=== PATIENT | male | born 1970 | race African-American/Black ===

== ENCOUNTER 2016-08-29 22:53 | Emergency (ER) | payer OTHER ==
[2016-08-29 23:08] VITALS: TEMP 98.1; BMI 25.8
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
[2016-08-30] MEDS ORDERED: ASPIRIN 81 MG CHEWABLE TABLETS PO ONE (00:06)
[2016-08-30 00:30] LABS: BASOPHIL 1.2 % (0-2.0); EOSINOPHIL 1.2 % (0-4.5); MCH 28.9 pg (25.7-33.7); MCHC 34.2 g/dl (32.0-35.9); MEAN CELL VOLUME 84.4 fl (80-96); MEAN PLT VOLUME 10.5 fl (7.5-11.1); NEUTROPHILS 48.9 % (42.8-82.8); PLATELET COUNT 122 K/MM3 (134-434); RDW 13.5 % (11.9-15.9); WHITE BLOOD COUNT 4.1 K/mm3 (4.0-10.0)
[2016-08-30 00:53] LABS: INR 1.05 (0.82-1.09); PROTHROMBIN TIME (PATIENT) 11.6 SEC (9.98-11.88)
[2016-08-30 00:55] LABS: ALBUMIN 3.7 g/dl (3.4-5.0); ANION GAP 10 (8-16); BILIRUBIN,TOTAL 0.6 mg/dL (0.2-1.0); CALCIUM 8.5 mg/dL (8.5-10.1); CO2 26 mmol/L (21-32); CREATININE 1.4 mg/dL (0.7-1.3); GLUCOSE,RANDOM 85 mg/dL (74-106); MAGNESIUM 2.1 mg/dL (1.8-2.4); SGOT/AST 14 U/L (15-37); SGPT/ALT 28 U/L (12-78); TOT PROT 6.9 g/dl (6.4-8.2)
[2016-08-30 00:57] LABS: ALK PHOS 58 U/L (45-117); TROPONIN I < 0.02 ng/ml (0.00-0.05)
[2016-08-30 05:07] LABS: TROPONIN I < 0.02 ng/ml (0.00-0.05)
--- NOTE | 2016-08-30 05:23 | PDOC ---
*Physical Exam - Vital Signs Last Vital Signs Temp Pulse Resp BP Pulse Ox 98.1 F 72 16 140/68 97 08/29/16 22:59 08/29/16 22:59 08/29/16 22:59 08/29/16 22:59 08/29/16 22:59 - Physical Exam Comments: 08/30/16 05:18 Pt received on sign out comfortable; repeat troponin is negative. He is encouraged to follow up with the PMD within the next 48 hours. ED Treatment Course - LABORATORY CBC & Chemistry Diagram: 08/30/16 00:20 08/30/16 00:20 - ADDITIONAL ORDERS Additional order review: Laboratory Results 08/30/16 08/30/16 08/30/16 04:05 00:20 00:20 INR D-Dimer Sodium Potassium Chloride Carbon Dioxide Anion Gap BUN Creatinine Creat Clearance w eGFR Random Glucose Calcium Magnesium Total Bilirubin AST ALT Alkaline Phosphatase Creatine Kinase 190 Creatine Kinase Index CK-MB (CK-2) CK-MB (CK-2) Rel Index Cancelled Troponin I < 0.02 B-Natriuretic Peptide 21.62 Total Protein Albumin 08/30/16 08/30/16 08/30/16 00:20 00:20 00:20 INR 1.05 D-Dimer < 200 Sodium 144 Potassium 4.0 Chloride 108 H Carbon Dioxide 26 Anion Gap 10 BUN 18 Creatinine 1.4 H Creat Clearance w eGFR 54.32 Random Glucose 85 Calcium 8.5 Magnesium 2.1 Total Bilirubin 0.6 D AST 14 L D ALT 28 D Alkaline Phosphatase 58 Creatine Kinase 203 Creatine Kinase Index 0.6 CK-MB (CK-2) 1.188 CK-MB (CK-2) Rel Index Troponin I < 0.02 B-Natriuretic Peptide Total Protein 6.9 Albumin 3.7 08/30/16 00:20 RBC 4.63 MCV 84.4 MCHC 34.2 RDW 13.5 MPV 10.5 Neutrophils % 48.9 Lymphocytes % 40.6 H Monocytes % 8.1 Eosinophils % 1.2 Basophils % 1.2 - Medications Given in the ED: ED Medications Discontinued Medications Generic Name Dose Route Start Last Admin Trade Name Freq PRN Reason Stop Dose Admin Aspirin 162 mg 08/30/16 00:06 08/30/16 01:00 Asa - PO 08/30/16 00:07 162 mg ONCE ONE Administration *DC/Admit/Observation/Transfer Diagnosis at time of Disposition: Chest pain Qualifiers: Chest pain type: unspecified Qualified Code(s): R07.9 - Chest pain, unspecified - Discharge Dispostion Disposition: HOME Condition at time of disposition: Good Admit: No Decision to Admit order Date/Time: 08/30/16 05:19 - Patient Instructions Additional Instructions: Please follow up with the PMD within the next 48 hours and if there is any change otherwise in symptoms, please return immediately to the ED.
[2016-08-30 07:01] VITALS: BP 134/80; PULSE 55
--- NOTE | 2016-08-30 13:29 | EKG ---
Test Reason : Blood Pressure : / mmHG Vent. Rate : 055 BPM Atrial Rate : 055 BPM P-R Int : 154 ms QRS Dur : 088 ms QT Int : 406 ms P-R-T Axes : 074 021 036 degrees QTc Int : 388 ms SINUS BRADYCARDIA OTHERWISE NORMAL ECG NO PREVIOUS ECGS AVAILABLE Confirmed by TOM CARMICHAEL MD ([id number]) on 08/30/2016 1:29:19 PM Referred By: Confirmed By:TOM CARMICHAEL MD
== END 2016-08-30 07:02 | disposition home or self-care (01) ==
LOC: JER 22:53
DX: R07.9 Chest pain, unspecified (principal)
CPT/HCPCS: 36415; 71010-TC; 80053; 82550; 82553; 83735; 83880; 84484; 85025; 85379; 85610; 93005; 93010; 99283-25

== ENCOUNTER 2017-09-05 08:41 | Inpatient (IN) | payer OTHER ==
[2017-09-05 10:29] VITALS: BMI 27.0
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
[2017-09-05] MEDS ORDERED: IBUPROFEN 400 MG TABLET (FP) PO PRN (11:41)
[2017-09-05] MEDS ORDERED: MENTHOL/PHENOL 1 EACH UD MM PRN (11:41)
[2017-09-05] MEDS ORDERED: ACETAMINOPHEN 325 MG TABLET (FP) PO PRN (11:41)
[2017-09-05] MEDS ORDERED: P-EPHED 60MG/TRIPROLIDI 2.5MG TABLET PO PRN (11:41)
[2017-09-05] MEDS ORDERED: LOPERAMIDE HCL 2 MG CAPSULE PO PRN (11:41)
[2017-09-05] MEDS ORDERED: MAGNESIUM CITRATE 300 ML BOTTLE PO PRN (11:41)
[2017-09-05] MEDS ORDERED: MAG HYDROX/AL HYDROX/SIMETH 30 ML UNIT-DOSE CUP PO PRN (11:41)
[2017-09-05] MEDS ORDERED: MAGNESIUM HYDROX 2400MG/30ML ORAL SUSPENSION 30 ML CUP PO PRN (11:41)
[2017-09-05] MEDS ORDERED: guaiFENesin/D-METHORPHAN HB 10 ML UNIT-DOSE CUPS PO PRN (11:41)
[2017-09-05] MEDS ORDERED: hydrOXYzine PAMOATE 50 MG CAPSULE (FP) PO PRN (11:41)
[2017-09-05] MEDS ORDERED: AMMONIUM LACTATE 12% LOTION 225 GM BOTTLE TP PRN (11:44)
[2017-09-05] MEDS ORDERED: METHADONE HCL 10 MG TABLET (FOR DETOX USE ONLY) PO ONE ×2 (13:00→23:00)
[2017-09-05] MEDS: diazePAM 5 MG TABLET PO PRN ×2 (13:59→22:33)
[2017-09-05] MEDS: CEPHALEXIN MONOHYDRATE 500 MG CAPSULE (UD) PO SCH ×3 (13:59→22:32)
[2017-09-05] MEDS: CLINDAMYCIN PHOSPHATE 1% TOPICAL SOLUTION 30 ML BOTTLE TP SCH (15:38)
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
[2017-09-05 22:20] LABS: URINE APPEARANCE CLEAR; URINE BILIRUBIN NEGATIVE (<2.0 mg/dL); URINE BLOOD NEGATIVE (NEGATIVE); URINE COLOR STRAW; URINE GLUCOSE (UA) NEGATIVE (NEGATIVE); URINE KETONE NEGATIVE (NEGATIVE); URINE LEUK ESTERASE NEGATIVE (NEGATIVE); URINE NITRITE NEGATIVE (NEGATIVE); URINE PROTEIN NEGATIVE (NEGATIVE)
[2017-09-05] MEDS: THIAMINE HCL 100 MG TABLET (FP) PO SCH (22:33)
--- NOTE | 2017-09-06 08:55 | PN ---
BHS COWS - Scale Resting Pulse: 0= [place] 80 or Below Sweatin= Chills/Flushing Restless Observation: 1= Difficult to Sit Still Pupil Size: 1= Pupils >than Normal Bone or Joint Aches: 2= Severe Diffuse Aches Runny Nose/ Eye Tearin= Nasal Congestion GI Upset > 30mins: 2= Nausea/Diarrhea Tremor Observation of Outstretched Hands: 1= Tremor [place], Not Seen Yawning Observation: 2= >3x During Session Anxiety or Irritability: 2=Irritable/Anxious Goose Flesh Skin: 0=Smooth Skin COWS Score: 13 BHS Progress Note (SOAP) Subjective: joint ache muscle pain gi distress difficulty to fall a aleep restlessness stuffy nose Objective: 09/06/17 08:54 Vital Signs Temperature 97.0 F L 09/06/17 06:34 Pulse Rate 45 L 09/06/17 06:34 Respiratory Rate 16 09/06/17 06:34 Blood Pressure 117/64 09/06/17 06:34 O2 Sat by Pulse Oximetry (%) Laboratory Last Values Urine Color Straw 09/05/17 22:14 Urine Appearance Clear 09/05/17 22:14 Urine pH 7.0 (5.0-8.0) 09/05/17 22:14 Ur Specific [place] 1.009 (1.001-1.035) 09/05/17 22:14 Urine Protein Negative (NEGATIVE) 09/05/17 22:14 Urine Glucose (UA) Negative (NEGATIVE) 09/05/17 22:14 Urine Ketones Negative (NEGATIVE) 09/05/17 22:14 Urine Blood Negative (NEGATIVE) 09/05/17 22:14 Urine Nitrite Negative (NEGATIVE) 09/05/17 22:14 Urine Bilirubin Negative (<2.0 mg/dL) 09/05/17 22:14 Urine Urobilinogen 2.0 mg/dL (0.2-1.0) 09/05/17 22:14 Ur Leukocyte Esterase Negative (NEGATIVE) 09/05/17 22:14 HIV 1&2 Antibody Screen Negative 09/05/17 15:00 HIV P24 Antigen Negative 09/05/17 15:00 lab noted Assessment: 09/06/17 08:54 withdrawal sx Plan: withdrawal sx
[2017-09-06] MEDS ORDERED: METHADONE HCL 10 MG TABLET (FOR DETOX USE ONLY) PO ONE (10:00)
[2017-09-06] MEDS: diazePAM 5 MG TABLET PO PRN ×3 (10:08→22:11)
[2017-09-06] MEDS: CEPHALEXIN MONOHYDRATE 500 MG CAPSULE (UD) PO SCH ×4 (10:08→22:12)
[2017-09-06] MEDS: PRENATAL VITAMINS W/ FOLIC ACID TABLET (FP) PO SCH (10:08)
[2017-09-06] MEDS: CLINDAMYCIN PHOSPHATE 1% TOPICAL SOLUTION 30 ML BOTTLE TP SCH (10:10)
[2017-09-06 10:19] LABS: HEMATOCRIT 37.1 % (35.4-49); HEMOGLOBIN 12.4 GM/dL (11.7-16.9); MCH 28.4 pg (25.7-33.7); MCHC 33.4 g/dl (32.0-35.9); MEAN CELL VOLUME 84.8 fl (80-96); PLATELET COUNT 125 K/MM3 (134-434); RBC 4.38 M/mm3 (4.00-5.60); RDW 13.9 % (11.9-15.9); WHITE BLOOD COUNT 3.3 K/mm3 (4.0-10.0)
[2017-09-06 10:50] LABS: CHLORIDE 109 mmol/L (98-107); POTASSIUM 4.5 mmol/L (3.5-5.1); SODIUM 140 mmol/L (136-145)
[2017-09-06 11:22] LABS: ALBUMIN 3.8 g/dl (3.4-5.0); ALK PHOS 53 U/L (45-117); ANION GAP 2 (8-16); BILIRUBIN,TOTAL 0.4 mg/dL (0.2-1.0); BLOOD UREA NITROGEN 19 mg/dL (7-18); CALCIUM 9.2 mg/dL (8.5-10.1); CO2 29 mmol/L (21-32); CREATININE 1.1 mg/dL (0.7-1.3); GLUCOSE,RANDOM 93 mg/dL (74-106); SGOT/AST 21 U/L (15-37); SGPT/ALT 39 U/L (12-78); TOT PROT 6.9 g/dl (6.4-8.2)
--- NOTE | 2017-09-06 13:10 | EKG ---
Test Reason : Blood Pressure : / mmHG Vent. Rate : 059 BPM Atrial Rate : 059 BPM P-R Int : 156 ms QRS Dur : 100 ms QT Int : 396 ms P-R-T Axes : 080 041 046 degrees QTc Int : 392 ms SINUS BRADYCARDIA OTHERWISE NORMAL ECG WHEN COMPARED WITH ECG OF 16-MAY-2017 21:06, NO SIGNIFICANT CHANGE WAS FOUND Confirmed by FELICIA PARNELL MD ([id number]) on 09/06/2017 1:10:05 PM Referred By: Confirmed By:FELICIA PARNELL MD
[2017-09-06] MEDS: THIAMINE HCL 100 MG TABLET (FP) PO SCH (22:11)
--- NOTE | 2017-09-07 09:43 | PN ---
S COWS - Scale Resting Pulse: 1= [place] 81-100 Sweatin= Chills/Flushing Restless Observation: 1= Difficult to Sit Still Pupil Size: 1= Pupils >than Normal Bone or Joint Aches: 1= Mild Discomfort Runny Nose/ Eye Tearin= Nasal Congestion GI Upset > 30mins: 1= Stomach Cramp Tremor Observation of Outstretched Hands: 1= Tremor [place], Not Seen Yawning Observation: 1= 1-2x During Session Anxiety or Irritability: 2=Irritable/Anxious Goose Flesh Skin: 3=Piloerection COWS Score: 14 S Progress Note (SOAP) Subjective: nasuea, sweats, interrutped sleep, anxiety, tremors Objective: 09/07/17 09:42 Vital Signs - 24 hr 09/06/17 09/06/17 09/06/17 14:03 18:42 23:04 Temperature 99 F 99.1 F 99 F Pulse Rate 61 57 L 68 Respiratory 18 19 18 Rate Blood Pressure 125/76 124/67 124/79 09/07/17 09/07/17 09/07/17 00:30 03:30 06:23 Temperature 98.2 F Pulse Rate 62 Respiratory 18 18 18 Rate Blood Pressure 131/84 Laboratory Tests 09/05/17 09/05/17 09/06/17 15:00 22:14 06:00 WBC 3.3 L RBC 4.38 Hgb 12.4 D Hct 37.1 MCV 84.8 MCH 28.4 MCHC 33.4 RDW 13.9 Plt Count 125 L MPV 12.0 H D Sodium Potassium Chloride Carbon Dioxide Anion Gap BUN Creatinine Creat Clearance w eGFR Random Glucose Calcium Total Bilirubin AST ALT Alkaline Phosphatase Total Protein Albumin Urine Color Straw Urine Appearance Clear Urine pH 7.0 Ur Specific [place] 1.009 Urine Protein Negative Urine Glucose (UA) Negative Urine Ketones Negative Urine Blood Negative Urine Nitrite Negative Urine Bilirubin Negative Urine Urobilinogen 2.0 Ur Leukocyte Esterase Negative HIV 1&2 Antibody Screen Negative HIV P24 Antigen Negative 09/06/17 06:00 WBC RBC Hgb Hct MCV MCH MCHC RDW Plt Count MPV Sodium 140 Potassium 4.5 Chloride 109 H Carbon Dioxide 29 Anion Gap 2 L BUN 19 H Creatinine 1.1 Creat Clearance w eGFR > 60 Random Glucose 93 Calcium 9.2 Total Bilirubin 0.4 AST 21 D ALT 39 Alkaline Phosphatase 53 Total Protein 6.9 Albumin 3.8 Urine Color Urine Appearance Urine pH Ur Specific [place] Urine Protein Urine Glucose (UA) Urine Ketones Urine Blood Urine Nitrite Urine Bilirubin Urine Urobilinogen Ur Leukocyte Esterase HIV 1&2 Antibody Screen HIV P24 Antigen elevated bun Assessment: 09/07/17 09:43 withdrawal sx - cotn detox, dhydation, fluids, encoruage ambualtion
[2017-09-07] MEDS ORDERED: METHADONE HCL 5 MG TABLET (FOR DETOX USE ONLY) PO ONE (10:00)
[2017-09-07] MEDS: PRENATAL VITAMINS W/ FOLIC ACID TABLET (FP) PO SCH (10:07)
[2017-09-07] MEDS: diazePAM 5 MG TABLET PO PRN ×2 (10:07→17:57)
[2017-09-07] MEDS: CLINDAMYCIN PHOSPHATE 1% TOPICAL SOLUTION 30 ML BOTTLE TP SCH (10:07)
[2017-09-07] MEDS: CEPHALEXIN MONOHYDRATE 500 MG CAPSULE (UD) PO SCH ×4 (10:07→22:08)
[2017-09-07] MEDS: THIAMINE HCL 100 MG TABLET (FP) PO SCH (22:08)
[2017-09-07] MEDS: MELATONIN 5 MG TABLETS PO PRN (22:08)
[2017-09-08] MEDS ORDERED: METHADONE HCL 5 MG TABLET (FOR DETOX USE ONLY) PO ONE (10:00)
[2017-09-08] MEDS: diazePAM 5 MG TABLET PO PRN (10:19)
[2017-09-08] MEDS: CEPHALEXIN MONOHYDRATE 500 MG CAPSULE (UD) PO SCH ×4 (10:20→22:24)
[2017-09-08] MEDS: PRENATAL VITAMINS W/ FOLIC ACID TABLET (FP) PO SCH (10:20)
[2017-09-08] MEDS: CLINDAMYCIN PHOSPHATE 1% TOPICAL SOLUTION 30 ML BOTTLE TP SCH (10:21)
--- NOTE | 2017-09-08 10:37 | PN ---
S Progress Note (SOAP) Subjective: nasuea, swets, interrupted sleep, anxiety, tremros Objective: 09/08/17 10:36 Vital Signs - 24 hr 09/07/17 09/07/17 09/08/17 15:09 18:05 00:30 Temperature 98.2 F 99.7 F H Pulse Rate 77 58 L Respiratory 20 16 20 Rate Blood Pressure 117/65 105/58 09/08/17 09/08/17 09/08/17 03:30 04:00 10:31 Temperature 96 F L 98.4 F Pulse Rate 62 76 Respiratory 18 18 19 Rate Blood Pressure 123/78 129/81 Laboratory Tests 09/05/17 09/05/17 09/06/17 15:00 22:14 06:00 WBC 3.3 L RBC 4.38 Hgb 12.4 D Hct 37.1 MCV 84.8 MCH 28.4 MCHC 33.4 RDW 13.9 Plt Count 125 L MPV 12.0 H D Sodium Potassium Chloride Carbon Dioxide Anion Gap BUN Creatinine Creat Clearance w eGFR Random Glucose Calcium Total Bilirubin AST ALT Alkaline Phosphatase Total Protein Albumin Urine Color Straw Urine Appearance Clear Urine pH 7.0 Ur Specific [place] 1.009 Urine Protein Negative Urine Glucose (UA) Negative Urine Ketones Negative Urine Blood Negative Urine Nitrite Negative Urine Bilirubin Negative Urine Urobilinogen 2.0 Ur Leukocyte Esterase Negative RPR Titer HIV 1&2 Antibody Screen Negative HIV P24 Antigen Negative 09/06/17 09/06/17 06:00 06:00 WBC RBC Hgb Hct MCV MCH MCHC RDW Plt Count MPV Sodium 140 Potassium 4.5 Chloride 109 H Carbon Dioxide 29 Anion Gap 2 L BUN 19 H Creatinine 1.1 Creat Clearance w eGFR > 60 Random Glucose 93 Calcium 9.2 Total Bilirubin 0.4 AST 21 D ALT 39 Alkaline Phosphatase 53 Total Protein 6.9 Albumin 3.8 Urine Color Urine Appearance Urine pH Ur Specific [place] Urine Protein Urine Glucose (UA) Urine Ketones Urine Blood Urine Nitrite Urine Bilirubin Urine Urobilinogen Ur Leukocyte Esterase RPR Titer Nonreactive HIV 1&2 Antibody Screen HIV P24 Antigen Assessment: 09/08/17 10:37 withdrwal sx - cont detox, fluiids, encourage ambulation
[2017-09-08] MEDS: THIAMINE HCL 100 MG TABLET (FP) PO SCH (22:24)
[2017-09-08] MEDS: MELATONIN 5 MG TABLETS PO PRN (22:24)
[2017-09-09] MEDS ORDERED: METHADONE HCL 10 MG TABLET (FOR DETOX USE ONLY) PO ONE (10:00)
[2017-09-09] MEDS: PRENATAL VITAMINS W/ FOLIC ACID TABLET (FP) PO SCH (10:37)
[2017-09-09] MEDS: CLINDAMYCIN PHOSPHATE 1% TOPICAL SOLUTION 30 ML BOTTLE TP SCH (10:37)
[2017-09-09] MEDS: CEPHALEXIN MONOHYDRATE 500 MG CAPSULE (UD) PO SCH ×4 (10:37→22:19)
--- NOTE | 2017-09-09 13:24 | PN ---
BHS Progress Note (SOAP) Subjective: Sweats, chills, irritability, interrupted sleep Objective: 09/09/17 13:23 Vital Signs - 8 hr 09/09/17 09/09/17 06:00 10:00 Temperature 98.1 F 97.9 F Pulse Rate 55 L 68 Respiratory 18 20 Rate Blood Pressure 130/70 154/76 Laboratory Last Values WBC 3.3 K/mm3 (4.0-10.0) L 09/06/17 06:00 RBC 4.38 M/mm3 (4.00-5.60) 09/06/17 06:00 Hgb 12.4 GM/dL (11.7-16.9) D 09/06/17 06:00 Hct 37.1 % (35.4-49) 09/06/17 06:00 MCV 84.8 fl (80-96) 09/06/17 06:00 MCH 28.4 pg (25.7-33.7) 09/06/17 06:00 MCHC 33.4 g/dl (32.0-35.9) 09/06/17 06:00 RDW 13.9 % (11.9-15.9) 09/06/17 06:00 Plt Count 125 K/MM3 (134-434) L 09/06/17 06:00 MPV 12.0 fl (7.5-11.1) H D 09/06/17 06:00 Sodium 140 mmol/L (136-145) 09/06/17 06:00 Potassium 4.5 mmol/L (3.5-5.1) 09/06/17 06:00 Chloride 109 mmol/L (98-107) H 09/06/17 06:00 Carbon Dioxide 29 mmol/L (21-32) 09/06/17 06:00 Anion Gap 2 (8-16) L 09/06/17 06:00 BUN 19 mg/dL (7-18) H 09/06/17 06:00 Creatinine 1.1 mg/dL (0.7-1.3) 09/06/17 06:00 Creat Clearance w eGFR > 60 (>60) 09/06/17 06:00 Random Glucose 93 mg/dL (74-106) 09/06/17 06:00 Calcium 9.2 mg/dL (8.5-10.1) 09/06/17 06:00 Total Bilirubin 0.4 mg/dL (0.2-1.0) 09/06/17 06:00 AST 21 U/L (15-37) D 09/06/17 06:00 ALT 39 U/L (12-78) 09/06/17 06:00 Alkaline Phosphatase 53 U/L (45-117) 09/06/17 06:00 Total Protein 6.9 g/dl (6.4-8.2) 09/06/17 06:00 Albumin 3.8 g/dl (3.4-5.0) 09/06/17 06:00 Urine Color Straw 09/05/17 22:14 Urine Appearance Clear 09/05/17 22:14 Urine pH 7.0 (5.0-8.0) 09/05/17 22:14 Ur Specific [place] 1.009 (1.001-1.035) 09/05/17 22:14 Urine Protein Negative (NEGATIVE) 09/05/17 22:14 Urine Glucose (UA) Negative (NEGATIVE) 09/05/17 22:14 Urine Ketones Negative (NEGATIVE) 09/05/17 22:14 Urine Blood Negative (NEGATIVE) 09/05/17 22:14 Urine Nitrite Negative (NEGATIVE) 09/05/17 22:14 Urine Bilirubin Negative (<2.0 mg/dL) 09/05/17 22:14 Urine Urobilinogen 2.0 mg/dL (0.2-1.0) 09/05/17 22:14 Ur Leukocyte Esterase Negative (NEGATIVE) 09/05/17 22:14 RPR Titer Nonreactive (NONREACTIVE) 09/06/17 06:00 HIV 1&2 Antibody Screen Negative 09/05/17 15:00 HIV P24 Antigen Negative 09/05/17 15:00 Labs noted Assessment: 09/09/17 13:23 Withdrawal sx Plan: Continue detox
[2017-09-09] MEDS: THIAMINE HCL 100 MG TABLET (FP) PO SCH (22:19)
[2017-09-10] MEDS ORDERED: METHADONE HCL 5 MG TABLET (FOR DETOX USE ONLY) PO ONE (06:00)
--- NOTE | 2017-09-10 09:39 | DS ---
[facility] Detox Discharge Summary Admission Date: 09/05/17 Discharge Date: 09/10/17 - History Present History: Opioid Dependence Additional Comments: 47 years old male admitted for heroin detox completed heroin detox regimen tolerated well patient is alert oriented x 3 no acute distress patient agrees to [facility] - Physical Exam Results Vital Signs: Vital Signs Temperature 98.2 F 09/10/17 06:00 Pulse Rate 66 09/10/17 06:00 Respiratory Rate 20 09/10/17 06:00 Blood Pressure 118/76 09/10/17 06:00 O2 Sat by Pulse Oximetry (%) Pertinent Admission Physical Exam Findings: Vital Signs Temperature 98.2 F 09/10/17 06:00 Pulse Rate 66 09/10/17 06:00 Respiratory Rate 20 09/10/17 06:00 Blood Pressure 118/76 09/10/17 06:00 O2 Sat by Pulse Oximetry (%) Laboratory Last Values WBC 3.3 K/mm3 (4.0-10.0) L 09/06/17 06:00 RBC 4.38 M/mm3 (4.00-5.60) 09/06/17 06:00 Hgb 12.4 GM/dL (11.7-16.9) D 09/06/17 06:00 Hct 37.1 % (35.4-49) 09/06/17 06:00 MCV 84.8 fl (80-96) 09/06/17 06:00 MCH 28.4 pg (25.7-33.7) 09/06/17 06:00 MCHC 33.4 g/dl (32.0-35.9) 09/06/17 06:00 RDW 13.9 % (11.9-15.9) 09/06/17 06:00 Plt Count 125 K/MM3 (134-434) L 09/06/17 06:00 MPV 12.0 fl (7.5-11.1) H D 09/06/17 06:00 Sodium 140 mmol/L (136-145) 09/06/17 06:00 Potassium 4.5 mmol/L (3.5-5.1) 09/06/17 06:00 Chloride 109 mmol/L (98-107) H 09/06/17 06:00 Carbon Dioxide 29 mmol/L (21-32) 09/06/17 06:00 Anion Gap 2 (8-16) L 09/06/17 06:00 BUN 19 mg/dL (7-18) H 09/06/17 06:00 Creatinine 1.1 mg/dL (0.7-1.3) 09/06/17 06:00 Creat Clearance w eGFR > 60 (>60) 09/06/17 06:00 Random Glucose 93 mg/dL (74-106) 09/06/17 06:00 Calcium 9.2 mg/dL (8.5-10.1) 09/06/17 06:00 Total Bilirubin 0.4 mg/dL (0.2-1.0) 09/06/17 06:00 AST 21 U/L (15-37) D 09/06/17 06:00 ALT 39 U/L (12-78) 09/06/17 06:00 Alkaline Phosphatase 53 U/L (45-117) 09/06/17 06:00 Total Protein 6.9 g/dl (6.4-8.2) 09/06/17 06:00 Albumin 3.8 g/dl (3.4-5.0) 09/06/17 06:00 Urine Color Straw 09/05/17 22:14 Urine Appearance Clear 09/05/17 22:14 Urine pH 7.0 (5.0-8.0) 09/05/17 22:14 Ur Specific [place] 1.009 (1.001-1.035) 09/05/17 22:14 Urine Protein Negative (NEGATIVE) 09/05/17 22:14 Urine Glucose (UA) Negative (NEGATIVE) 09/05/17 22:14 Urine Ketones Negative (NEGATIVE) 09/05/17 22:14 Urine Blood Negative (NEGATIVE) 09/05/17 22:14 Urine Nitrite Negative (NEGATIVE) 09/05/17 22:14 Urine Bilirubin Negative (<2.0 mg/dL) 09/05/17 22:14 Urine Urobilinogen 2.0 mg/dL (0.2-1.0) 09/05/17 22:14 Ur Leukocyte Esterase Negative (NEGATIVE) 09/05/17 22:14 RPR Titer Nonreactive (NONREACTIVE) 09/06/17 06:00 HIV 1&2 Antibody Screen Negative 09/05/17 15:00 HIV P24 Antigen Negative 09/05/17 15:00 lab noted - Treatment Hospital Course: Detox Protocol Followed, Detoxed Safely, Responded well, Discharged Condition Good, Rehab Referral Accepted Patient has Accepted a Rehab Referral to: [facility] - Medication Discharge Medications: Ambulatory Orders Cephalexin [Keflex] 500 mg PO QID 3 Days capsule 09/10/17 - Diagnosis (1) Opioid dependence with withdrawal Current Visit: Yes Status: Acute - AMA Did Patient Leave Against Medical Advice: No
[2017-09-10 10:33] VITALS: BP 136/88; PULSE 83; TEMP 97.5
== END 2017-09-10 10:07 | disposition home or self-care (01) | DRG 773 ==
LOC: YASAS 08:41 → Y6N 12:33
PROVIDERS: ADMIT Internal Medicine; ATTEND Internal Medicine
PROC: HZ2ZZZZ Detoxification Services for Substance Abuse Treatment (ICD-10-PCS; principal; 2017-09-05)
DX: F11.23 Opioid dependence with withdrawal (principal); F41.9 Anxiety disorder, unspecified; F19.24 Other psychoactive substance dependence with psychoactive substance-induced mood disorder; F34.1 Dysthymic disorder; G47.00 Insomnia, unspecified; E86.0 Dehydration; K21.9 Gastro-esophageal reflux disease without esophagitis; Z86.19 Personal history of other infectious and parasitic diseases; Z87.438 Personal history of other diseases of male genital organs
CPT/HCPCS: 36415; 80053; 81003; 85027; 86593; 87389; 93005; 93010

== ENCOUNTER 2017-09-11 10:56 | Inpatient (IN) | payer OTHER ==
[2017-09-11 11:06] VITALS: BMI 27.1
[2017-10-01 06:54] VITALS: TEMP 98.2
[2017-10-02 06:55] VITALS: BP 143/86; PULSE 77
== END 2017-10-02 10:35 | disposition home or self-care (01) | DRG 772 ==
LOC: YASAS 10:56 → Y3W 12:32
PROVIDERS: ADMIT Psychiatry & Neurology Psychiatry; ATTEND Psychiatry & Neurology Psychiatry
PROC: HZ42ZZZ Group Counseling for Substance Abuse Treatment, Cognitive-Behavioral (ICD-10-PCS; principal; 2017-09-11)
DX: F11.23 Opioid dependence with withdrawal (principal); F19.24 Other psychoactive substance dependence with psychoactive substance-induced mood disorder; K21.9 Gastro-esophageal reflux disease without esophagitis; Z98.890 Other specified postprocedural states
CPT/HCPCS: 81003

== ENCOUNTER 2019-04-24 10:07 | Inpatient (IN) | payer OTHER ==
[2019-04-24 10:12] VITALS: BMI 29.7
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
[2019-04-24] MEDS ORDERED: ACETAMINOPHEN 325 MG TABLET (FP) PO PRN ×2 (11:25)
[2019-04-24] MEDS ORDERED: cloNIDine HCL 0.1 MG TABLET PO PRN (11:25)
[2019-04-24] MEDS ORDERED: METHOCARBAMOL 500 MG TABLET PO PRN (11:25)
[2019-04-24] MEDS ORDERED: MENTHOL/PHENOL 1 EACH UD MM PRN (11:25)
[2019-04-24] MEDS ORDERED: IBUPROFEN 400 MG TABLET (FP) PO PRN (11:25)
[2019-04-24] MEDS ORDERED: MAGNESIUM CITRATE 300 ML BOTTLE PO PRN (11:25)
[2019-04-24] MEDS ORDERED: MELATONIN 5 MG TABLETS PO PRN (11:25)
[2019-04-24] MEDS ORDERED: BISMUTH SUBSALICYLATE 262 MG/15 ML BTL PO PRN (11:25)
[2019-04-24] MEDS ORDERED: MAG HYDROX/AL HYDROX/SIMETH 30 ML UNIT-DOSE CUP PO PRN (11:25)
[2019-04-24] MEDS ORDERED: MAGNESIUM HYDROX 2400MG/30ML ORAL SUSPENSION 30 ML CUP PO PRN (11:25)
[2019-04-24] MEDS ORDERED: METHADONE HCL 10 MG TABLET (FOR DETOX USE ONLY) PO ONE (12:10)
[2019-04-24 14:39] LABS: HEMATOCRIT 39.2 % (35.4-49); HEMOGLOBIN 12.7 GM/dL (11.7-16.9); MCH 27.1 pg (25.7-33.7); MCHC 32.4 g/dl (32.0-35.9); MEAN CELL VOLUME 83.9 fl (80-96); MEAN PLT VOLUME 10.6 fl (7.5-11.1); PLATELET COUNT 133 K/MM3 (134-434); RBC 4.67 M/mm3 (4.00-5.60); RDW 15.2 % (11.9-15.9); WHITE BLOOD COUNT 4.7 K/mm3 (4.0-10.0)
[2019-04-24 15:49] LABS: ALBUMIN 3.9 g/dl (3.4-5.0); BILIRUBIN,TOTAL 0.5 mg/dL (0.2-1); BLOOD UREA NITROGEN 16.6 mg/dL (7-18); CALCIUM 9.3 mg/dL (8.5-10.1); CREATININE 1.2 mg/dL (0.55-1.3); POTASSIUM 4.1 mmol/L (3.5-5.1); TOT PROT 7.5 g/dl (6.4-8.2)
[2019-04-24] MEDS: hydrOXYzine PAMOATE 25 MG CAPSULE (FP) PO PRN (22:18)
[2019-04-24] MEDS: THIAMINE HCL 100 MG TABLET (FP) PO SCH (22:18)
[2019-04-25] MEDS ORDERED: METHADONE HCL 5 MG TABLET (FOR DETOX USE ONLY) ONE (09:46)
[2019-04-25] MEDS ORDERED: METHADONE HCL 10 MG TABLET (FOR DETOX USE ONLY) ONE (09:46)
[2019-04-25] MEDS ORDERED: METHADONE (DETOX) 20 MG, METHADONE (DETOX) 5 MG PO ONE (10:00)
[2019-04-25] MEDS: NICOTINE 14 MG/24 HOURS TOPICAL PATCH TD SCH (10:53)
[2019-04-25] MEDS: PRENATAL VITAMINS W/ FOLIC ACID TABLET (FP) PO SCH (10:53)
[2019-04-25] MEDS ORDERED: FLU VACCINE QUAD 60 MCG/0.5 ML (MDV 19-20) IM ONE (12:00)
--- NOTE | 2019-04-25 14:07 | PN ---
BHS COWS - Scale Resting Pulse: 0= [place] 80 or Below Sweatin= Chills/Flushing Restless Observation: 0= Sits Still Pupil Size: 1= Pupils >than Normal Bone or Joint Aches: 2= Severe Diffuse Aches Runny Nose/ Eye Tearin= Runny Nose/Eyes GI Upset > 30mins: 1= Stomach Cramp Tremor Observation of Outstretched Hands: 2= Slight Tremor Visible Yawning Observation: 1= 1-2x During Session Anxiety or Irritability: 2=Irritable/Anxious Goose Flesh Skin: 3=Piloerection COWS Score: 15 BHS Progress Note (SOAP) Subjective: 48 years old male admitted on 04/24/19 for opiate withdrawal sx management treated with methadone detox regimen c/o constipation from opiate metamucil senna enema Objective: 04/25/19 14:07 Vital Signs Temperature 97.8 F 04/25/19 13:13 Pulse Rate 59 L 04/25/19 13:13 Respiratory Rate 18 04/25/19 13:13 Blood Pressure 132/86 04/25/19 13:13 O2 Sat by Pulse Oximetry (%) Laboratory Last Values WBC 4.7 K/mm3 (4.0-10.0) 04/24/19 11:15 RBC 4.67 M/mm3 (4.00-5.60) 04/24/19 11:15 Hgb 12.7 GM/dL (11.7-16.9) 04/24/19 11:15 Hct 39.2 % (35.4-49) 04/24/19 11:15 MCV 83.9 fl (80-96) 04/24/19 11:15 MCH 27.1 pg (25.7-33.7) 04/24/19 11:15 MCHC 32.4 g/dl (32.0-35.9) 04/24/19 11:15 RDW 15.2 % (11.9-15.9) 04/24/19 11:15 Plt Count 133 K/MM3 (134-434) L 04/24/19 11:15 MPV 10.6 fl (7.5-11.1) D 04/24/19 11:15 Sodium 140 mmol/L (136-145) 04/24/19 11:15 Potassium 4.1 mmol/L (3.5-5.1) 04/24/19 11:15 Chloride 107 mmol/L (98-107) 04/24/19 11:15 Carbon Dioxide 26 mmol/L (21-32) 04/24/19 11:15 Anion Gap 7 MMOL/L (8-16) L 04/24/19 11:15 BUN 16.6 mg/dL (7-18) 04/24/19 11:15 Creatinine 1.2 mg/dL (0.55-1.3) 04/24/19 11:15 Est GFR (CKD-EPI)AfAm 81.80 04/24/19 11:15 Est GFR (CKD-EPI)NonAf 70.58 04/24/19 11:15 Random Glucose 80 mg/dL (74-106) 04/24/19 11:15 Calcium 9.3 mg/dL (8.5-10.1) 04/24/19 11:15 Total Bilirubin 0.5 mg/dL (0.2-1) 04/24/19 11:15 AST 34 U/L (15-37) 04/24/19 11:15 ALT 72 U/L (13-61) H 04/24/19 11:15 Alkaline Phosphatase 58 U/L (45-117) 04/24/19 11:15 Total Protein 7.5 g/dl (6.4-8.2) 04/24/19 11:15 Albumin 3.9 g/dl (3.4-5.0) 04/24/19 11:15 RPR Titer Nonreactive (NONREACTIVE) 04/24/19 11:15 HIV 1&2 Antibody Screen Negative 04/24/19 11:30 HIV P24 Antigen Negative 04/24/19 11:30 lab noted Assessment: 04/25/19 14:07 opiate withdrawal sx Plan: continue methadone detox regimen
[2019-04-25] MEDS ORDERED: SODIUM PHOSPHATE/NA BIPHOS 133 ML ENEMA PR ONE (15:00)
[2019-04-25] MEDS: PSYLLIUM 5.85 GM PACKET PO SCH (15:24)
[2019-04-25] MEDS: SENNOSIDES 8.6MG TABLET (FP) PO SCH (22:18)
[2019-04-25] MEDS: THIAMINE HCL 100 MG TABLET (FP) PO SCH (22:18)
[2019-04-25] MEDS: DOCUSATE SODIUM 100 MG CAPSULE (FP) PO SCH (22:19)
[2019-04-26] MEDS: DOCUSATE SODIUM 100 MG CAPSULE (FP) PO SCH ×3 (06:01→22:03)
[2019-04-26] MEDS ORDERED: METHADONE HCL 10 MG TABLET (FOR DETOX USE ONLY) PO ONE (10:00)
[2019-04-26] MEDS: PRENATAL VITAMINS W/ FOLIC ACID TABLET (FP) PO SCH (10:19)
[2019-04-26] MEDS: NICOTINE 14 MG/24 HOURS TOPICAL PATCH TD SCH (10:20)
[2019-04-26] MEDS: PSYLLIUM 5.85 GM PACKET PO SCH (14:04)
--- NOTE | 2019-04-26 14:04 | PN ---
BHS COWS - Scale Resting Pulse: 0= [place] 80 or Below Sweatin= No chills or Flushing Restless Observation: 1= Difficult to Sit Still Pupil Size: 1= Pupils >than Normal Bone or Joint Aches: 1= Mild Discomfort Runny Nose/ Eye Tearin= Runny Nose/Eyes GI Upset > 30mins: 1= Stomach Cramp Tremor Observation of Outstretched Hands: 2= Slight Tremor Visible Yawning Observation: 1= 1-2x During Session Anxiety or Irritability: 2=Irritable/Anxious Goose Flesh Skin: 0=Smooth Skin COWS Score: 11 BHS Progress Note (SOAP) Subjective: alert,irritable,anxious,interrupted sleep,pain in the bod and back Objective: 04/26/19 14:04 Vital Signs Temperature 99.0 F 04/26/19 13:36 Pulse Rate 61 04/26/19 13:36 Respiratory Rate 18 04/26/19 13:36 Blood Pressure 116/80 04/26/19 13:36 O2 Sat by Pulse Oximetry (%) Assessment: 04/26/19 14:04 withdrawal symptom Plan: continue detox methadone regimen
[2019-04-26] MEDS: SENNOSIDES 8.6MG TABLET (FP) PO SCH (22:03)
[2019-04-26] MEDS: hydrOXYzine PAMOATE 25 MG CAPSULE (FP) PO PRN (22:03)
[2019-04-26] MEDS: THIAMINE HCL 100 MG TABLET (FP) PO SCH (22:03)
[2019-04-27] MEDS: DOCUSATE SODIUM 100 MG CAPSULE (FP) PO SCH ×3 (06:33→22:15)
[2019-04-27] MEDS ORDERED: METHADONE HCL 10 MG TABLET (FOR DETOX USE ONLY) ONE (09:47)
[2019-04-27] MEDS ORDERED: METHADONE HCL 5 MG TABLET (FOR DETOX USE ONLY) ONE (09:48)
[2019-04-27] MEDS ORDERED: METHADONE (DETOX) 10 MG, METHADONE (DETOX) 5 MG PO ONE (10:00)
[2019-04-27] MEDS: PRENATAL VITAMINS W/ FOLIC ACID TABLET (FP) PO SCH (10:53)
[2019-04-27] MEDS: NICOTINE 14 MG/24 HOURS TOPICAL PATCH TD SCH (10:53)
--- NOTE | 2019-04-27 11:40 | PN ---
S COWS - Scale Resting Pulse: 0= [place] 80 or Below Sweatin= Beads of Sweat on Face Restless Observation: 1= Difficult to Sit Still Pupil Size: 0= Normal to Room Light Bone or Joint Aches: 2= Severe Diffuse Aches Runny Nose/ Eye Tearin= None GI Upset > 30mins: 0= None Tremor Observation of Outstretched Hands: 0= None Yawning Observation: 1= 1-2x During Session Anxiety or Irritability: 2=Irritable/Anxious Goose Flesh Skin: 0=Smooth Skin COWS Score: 9 S Progress Note (SOAP) Subjective: c/o anxiety, irritability, sweats, and muscle aches. Objective: 04/27/19 11:40 Vital Signs 04/27/19 04/27/19 06:36 09:31 Temperature 99 F 98.7 F Pulse Rate 60 80 Respiratory 18 18 Rate Blood Pressure 109/67 138/87 Laboratory Last Values WBC 4.7 K/mm3 (4.0-10.0) 04/24/19 11:15 RBC 4.67 M/mm3 (4.00-5.60) 04/24/19 11:15 Hgb 12.7 GM/dL (11.7-16.9) 04/24/19 11:15 Hct 39.2 % (35.4-49) 04/24/19 11:15 MCV 83.9 fl (80-96) 04/24/19 11:15 MCH 27.1 pg (25.7-33.7) 04/24/19 11:15 MCHC 32.4 g/dl (32.0-35.9) 04/24/19 11:15 RDW 15.2 % (11.9-15.9) 04/24/19 11:15 Plt Count 133 K/MM3 (134-434) L 04/24/19 11:15 MPV 10.6 fl (7.5-11.1) D 04/24/19 11:15 Sodium 140 mmol/L (136-145) 04/24/19 11:15 Potassium 4.1 mmol/L (3.5-5.1) 04/24/19 11:15 Chloride 107 mmol/L (98-107) 04/24/19 11:15 Carbon Dioxide 26 mmol/L (21-32) 04/24/19 11:15 Anion Gap 7 MMOL/L (8-16) L 04/24/19 11:15 BUN 16.6 mg/dL (7-18) 04/24/19 11:15 Creatinine 1.2 mg/dL (0.55-1.3) 04/24/19 11:15 Est GFR (CKD-EPI)AfAm 81.80 04/24/19 11:15 Est GFR (CKD-EPI)NonAf 70.58 04/24/19 11:15 Random Glucose 80 mg/dL (74-106) 04/24/19 11:15 Calcium 9.3 mg/dL (8.5-10.1) 04/24/19 11:15 Total Bilirubin 0.5 mg/dL (0.2-1) 04/24/19 11:15 AST 34 U/L (15-37) 04/24/19 11:15 ALT 72 U/L (13-61) H 04/24/19 11:15 Alkaline Phosphatase 58 U/L (45-117) 04/24/19 11:15 Total Protein 7.5 g/dl (6.4-8.2) 04/24/19 11:15 Albumin 3.9 g/dl (3.4-5.0) 04/24/19 11:15 RPR Titer Nonreactive (NONREACTIVE) 04/24/19 11:15 HIV 1&2 Antibody Screen Negative 04/24/19 11:30 HIV P24 Antigen Negative 04/24/19 11:30 Labs noted. Assessment: 04/27/19 11:40 AOX3, in no acute respiratory distress. Full ROM, ambulating in the unit. Withdrawal symptoms. Plan: continue detox.
[2019-04-27] MEDS: PSYLLIUM 5.85 GM PACKET PO SCH (16:10)
[2019-04-27] MEDS: SENNOSIDES 8.6MG TABLET (FP) PO SCH (22:14)
[2019-04-27] MEDS: THIAMINE HCL 100 MG TABLET (FP) PO SCH (22:15)
[2019-04-27] MEDS: hydrOXYzine PAMOATE 25 MG CAPSULE (FP) PO PRN (22:15)
[2019-04-28] MEDS: DOCUSATE SODIUM 100 MG CAPSULE (FP) PO SCH ×3 (06:31→23:19)
[2019-04-28] MEDS ORDERED: METHADONE HCL 10 MG TABLET (FOR DETOX USE ONLY) PO ONE (10:00)
[2019-04-28] MEDS: NICOTINE 14 MG/24 HOURS TOPICAL PATCH TD SCH (10:38)
[2019-04-28] MEDS: PRENATAL VITAMINS W/ FOLIC ACID TABLET (FP) PO SCH (10:38)
--- NOTE | 2019-04-28 13:39 | PN ---
BHS COWS - Scale Resting Pulse: 0= [place] 80 or Below Sweatin= Chills/Flushing Restless Observation: 0= Sits Still Pupil Size: 0= Normal to Room Light Bone or Joint Aches: 1= Mild Discomfort Runny Nose/ Eye Tearin= Nasal Congestion GI Upset > 30mins: 0= None Tremor Observation of Outstretched Hands: 1= Tremor [place], Not Seen Yawning Observation: 0= None Anxiety or Irritability: 1=Feels Anxious/Irritable Goose Flesh Skin: 0=Smooth Skin COWS Score: 5 BHS Progress Note (SOAP) Subjective: 48 years old male admitted on 04/24/19 for opiate withdrawal sx management treated with methadone detox regimen feeling better today less bodyache mild anxiety Objective: 04/28/19 13:38 Vital Signs Temperature 97.2 F L 04/28/19 09:31 Pulse Rate 61 04/28/19 09:31 Respiratory Rate 20 04/28/19 09:31 Blood Pressure 125/80 04/28/19 09:31 O2 Sat by Pulse Oximetry (%) Laboratory Last Values WBC 4.7 K/mm3 (4.0-10.0) 04/24/19 11:15 RBC 4.67 M/mm3 (4.00-5.60) 04/24/19 11:15 Hgb 12.7 GM/dL (11.7-16.9) 04/24/19 11:15 Hct 39.2 % (35.4-49) 04/24/19 11:15 MCV 83.9 fl (80-96) 04/24/19 11:15 MCH 27.1 pg (25.7-33.7) 04/24/19 11:15 MCHC 32.4 g/dl (32.0-35.9) 04/24/19 11:15 RDW 15.2 % (11.9-15.9) 04/24/19 11:15 Plt Count 133 K/MM3 (134-434) L 04/24/19 11:15 MPV 10.6 fl (7.5-11.1) D 04/24/19 11:15 Sodium 140 mmol/L (136-145) 04/24/19 11:15 Potassium 4.1 mmol/L (3.5-5.1) 04/24/19 11:15 Chloride 107 mmol/L (98-107) 04/24/19 11:15 Carbon Dioxide 26 mmol/L (21-32) 04/24/19 11:15 Anion Gap 7 MMOL/L (8-16) L 04/24/19 11:15 BUN 16.6 mg/dL (7-18) 04/24/19 11:15 Creatinine 1.2 mg/dL (0.55-1.3) 04/24/19 11:15 Est GFR (CKD-EPI)AfAm 81.80 04/24/19 11:15 Est GFR (CKD-EPI)NonAf 70.58 04/24/19 11:15 Random Glucose 80 mg/dL (74-106) 04/24/19 11:15 Calcium 9.3 mg/dL (8.5-10.1) 04/24/19 11:15 Total Bilirubin 0.5 mg/dL (0.2-1) 04/24/19 11:15 AST 34 U/L (15-37) 04/24/19 11:15 ALT 72 U/L (13-61) H 04/24/19 11:15 Alkaline Phosphatase 58 U/L (45-117) 04/24/19 11:15 Total Protein 7.5 g/dl (6.4-8.2) 04/24/19 11:15 Albumin 3.9 g/dl (3.4-5.0) 04/24/19 11:15 RPR Titer Nonreactive (NONREACTIVE) 04/24/19 11:15 HIV 1&2 Antibody Screen Negative 04/24/19 11:30 HIV P24 Antigen Negative 04/24/19 11:30 lab noted Assessment: 04/28/19 13:38 opiate withdrawal sx Plan: continue methadone detox regimen
[2019-04-28] MEDS: PSYLLIUM 5.85 GM PACKET PO SCH (15:05)
[2019-04-28] MEDS: THIAMINE HCL 100 MG TABLET (FP) PO SCH (23:18)
[2019-04-28] MEDS: SENNOSIDES 8.6MG TABLET (FP) PO SCH (23:20)
[2019-04-28] MEDS: hydrOXYzine PAMOATE 25 MG CAPSULE (FP) PO PRN (23:20)
[2019-04-29] MEDS ORDERED: METHADONE HCL 5 MG TABLET (FOR DETOX USE ONLY) PO ONE (06:00)
[2019-04-29] MEDS: DOCUSATE SODIUM 100 MG CAPSULE (FP) PO SCH (07:09)
[2019-04-29 07:17] VITALS: BP 123/80; PULSE 61; TEMP 98.2
[2019-04-29] MEDS: PRENATAL VITAMINS W/ FOLIC ACID TABLET (FP) PO SCH (08:59)
[2019-04-29] MEDS: NICOTINE 14 MG/24 HOURS TOPICAL PATCH TD SCH (08:59)
--- NOTE | 2019-04-29 11:17 | DS ---
[facility] Detox Discharge Summary Admission Date: 04/24/19 Discharge Date: 04/29/19 - History Present History: Opioid Dependence Additional Comments: 48 years old male admitted on 04/24/19 for opiate withdrawal sx management treated [facility] methadone detox regimen patient is alert oriented x 3 cardiac s1s2 regular rate rhythm respiratory clear lung bilaterally on auscultation abdomen soft round obese no rebound tenderness Pertinent Past History: patient agrees to consider medication assisted treatment program and order picker narcan from pharmacy - Physical Exam Results Vital Signs: Vital Signs Temperature 98.2 F 04/29/19 07:15 Pulse Rate 61 04/29/19 07:15 Respiratory Rate 20 04/29/19 07:15 Blood Pressure 123/80 04/29/19 07:15 O2 Sat by Pulse Oximetry (%) Pertinent Admission Physical Exam Findings: opiate withdrawal sx Laboratory Last Values WBC 4.7 K/mm3 (4.0-10.0) 04/24/19 11:15 RBC 4.67 M/mm3 (4.00-5.60) 04/24/19 11:15 Hgb 12.7 GM/dL (11.7-16.9) 04/24/19 11:15 Hct 39.2 % (35.4-49) 04/24/19 11:15 MCV 83.9 fl (80-96) 04/24/19 11:15 MCH 27.1 pg (25.7-33.7) 04/24/19 11:15 MCHC 32.4 g/dl (32.0-35.9) 04/24/19 11:15 RDW 15.2 % (11.9-15.9) 04/24/19 11:15 Plt Count 133 K/MM3 (134-434) L 04/24/19 11:15 MPV 10.6 fl (7.5-11.1) D 04/24/19 11:15 Sodium 140 mmol/L (136-145) 04/24/19 11:15 Potassium 4.1 mmol/L (3.5-5.1) 04/24/19 11:15 Chloride 107 mmol/L (98-107) 04/24/19 11:15 Carbon Dioxide 26 mmol/L (21-32) 04/24/19 11:15 Anion Gap 7 MMOL/L (8-16) L 04/24/19 11:15 BUN 16.6 mg/dL (7-18) 04/24/19 11:15 Creatinine 1.2 mg/dL (0.55-1.3) 04/24/19 11:15 Est GFR (CKD-EPI)AfAm 81.80 04/24/19 11:15 Est GFR (CKD-EPI)NonAf 70.58 04/24/19 11:15 Random Glucose 80 mg/dL (74-106) 04/24/19 11:15 Calcium 9.3 mg/dL (8.5-10.1) 04/24/19 11:15 Total Bilirubin 0.5 mg/dL (0.2-1) 04/24/19 11:15 AST 34 U/L (15-37) 04/24/19 11:15 ALT 72 U/L (13-61) H 04/24/19 11:15 Alkaline Phosphatase 58 U/L (45-117) 04/24/19 11:15 Total Protein 7.5 g/dl (6.4-8.2) 04/24/19 11:15 Albumin 3.9 g/dl (3.4-5.0) 04/24/19 11:15 RPR Titer Nonreactive (NONREACTIVE) 04/24/19 11:15 HIV 1&2 Antibody Screen Negative 04/24/19 11:30 HIV P24 Antigen Negative 04/24/19 11:30 lab noted - Treatment Hospital Course: Detox Protocol Followed, Detoxed Safely, Responded well, Discharged Condition Good, Rehab Referral Accepted Patient has Accepted a Rehab Referral to: community support approach - Medication Discharge Medications: Ambulatory Orders Naloxone HCl [Narcan] 4 mg NS ASDIR PRN #1 spray 04/25/19 - Diagnosis (1) Opioid dependence with withdrawal Current Visit: Yes Status: Acute (2) Substance induced mood disorder Current Visit: No Status: Suspected (3) GERD (gastroesophageal reflux disease) Current Visit: Yes Status: Chronic Qualifiers: Esophagitis presence: without esophagitis Qualified Code(s): K21.9 - Gastro -esophageal reflux disease without esophagitis (4) Opioid dependence with withdrawal Current Visit: Yes Status: Acute (5) Substance induced mood disorder Current Visit: Yes Status: Suspected - AMA Did Patient Leave Against Medical Advice: No COWS (PN) - Opiate Withdrawal Resting Pulse: 0= [place] 80 or Below Sweatin= Chills/Flushing Restless Observation: 0= Sits Still Pupil Size: 0= Normal to Room Light Bone or Joint Aches: 0= None Runny Nose/ Eye Tearin= None GI Upset > 30mins: 0= None Tremor Observation of Outstretched Hands: 0= None Yawning Observation: 0= None Anxiety or Irritability: 1=Feels Anxious/Irritable Goose Flesh Skin: 0=Smooth Skin COWS Score: 2
== END 2019-04-29 08:44 | disposition home or self-care (01) | DRG 773 ==
LOC: YASAS 10:07 → Y3N 11:52
PROVIDERS: ADMIT Allergy & Immunology; ATTEND Allergy & Immunology
PROC: HZ2ZZZZ Detoxification Services for Substance Abuse Treatment (ICD-10-PCS; principal; 2019-04-24)
DX: F11.23 Opioid dependence with withdrawal (principal); F10.230 Alcohol dependence with withdrawal, uncomplicated; F19.24 Other psychoactive substance dependence with psychoactive substance-induced mood disorder; F34.1 Dysthymic disorder; K21.9 Gastro-esophageal reflux disease without esophagitis; K59.03 Drug induced constipation; T40.2X5A Adverse effect of other opioids, initial encounter; Y92.89 Other specified places as the place of occurrence of the external cause; Z98.890 Other specified postprocedural states
CPT/HCPCS: 36415; 80053; 85027; 86593; 87389; Q2036

== ENCOUNTER 2019-04-29 14:57 | Emergency (ER) | payer OTHER ==
[2019-04-29 15:04] VITALS: TEMP 98; BMI 29.7
[2019-04-29] MEDS ORDERED: ONDANSETRON 4 MG/2 ML VIAL IVPUSH ONE (15:06)
--- NOTE | 2019-04-29 15:06 | PDOC ---
Rapid Medical Evaluation Time Seen by Provider: 04/29/19 15:02 Medical Evaluation: Allergies Allergy/AdvReac Type Severity Reaction Status Date / Time No Known Allergies Allergy Verified 04/24/19 10:05 04/29/19 15:02 I have performed a brief in-person evaluation of this patient. The patient presents with a chief complaint of: vomiting and diarrhea, substance abus Pertinent physical exam findings:stable and in NAD, non-focal I have ordered the following:labs, zofran The patient will proceed to the ED for further evaluation.
[2019-04-29] MEDS ORDERED: SODIUM CHLORIDE 1,000 ML IV STA (15:07)
[2019-04-29 15:49] LABS: BASO % 0.6 % (0-2.0); EOS % 0.3 % (0-4.5); HEMATOCRIT 49.5 % (35.4-49); HEMOGLOBIN 16.6 GM/dL (11.7-16.9); LYMPH % 13.7 % (8-40); MCH 27.5 pg (25.7-33.7); MCHC 33.4 g/dl (32.0-35.9); MEAN CELL VOLUME 82.4 fl (80-96); MEAN PLT VOLUME 10.1 fl (7.5-11.1); MONO % 4.9 % (3.8-10.2); NEUT % 80.5 % (42.8-82.8); PLATELET COUNT 157 K/MM3 (134-434); RBC 6.01 M/mm3 (4.00-5.60); RDW 14.8 % (11.9-15.9); WHITE BLOOD COUNT 7.8 K/mm3 (4.0-10.0)
[2019-04-29] MEDS ORDERED: ONDANSETRON 4 MG/2 ML VIAL ONE (15:54)
[2019-04-29 16:18] LABS: ALBUMIN 5.2 g/dl (3.4-5.0); CALCIUM 11.4 mg/dL (8.5-10.1); CREATININE 1.5 mg/dL (0.55-1.3); POTASSIUM 4.1 mmol/L (3.5-5.1); TOT PROT 9.7 g/dl (6.4-8.2)
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
[2019-04-29 17:46] VITALS: BP 163/91; PULSE 92
--- NOTE | 2019-04-30 10:34 | EKG ---
Test Reason : Blood Pressure : / mmHG Vent. Rate : 096 BPM Atrial Rate : 096 BPM P-R Int : 150 ms QRS Dur : 082 ms QT Int : 348 ms P-R-T Axes : 069 -42 052 degrees QTc Int : 439 ms NORMAL SINUS RHYTHM LEFT AXIS DEVIATION ABNORMAL ECG WHEN COMPARED WITH ECG OF 05-SEP-2017 14:05, VENT. RATE HAS INCREASED BY 37 BPM QT HAS LENGTHENED Confirmed by Tejas Hamilton MD ([id number]) on 04/30/2019 10:34:15 AM Referred By: Confirmed By:Tejas Hamilton MD
--- NOTE | 2019-04-30 18:24 | PDOC ---
Documentation entered by Reji Gilbert SCRIBE, acting as scribe for Kannan Flores MD. Kannan Flores MD: This documentation has been prepared by the Vladimir bonilla Nirvannie, SCRIBE, under my direction and personally reviewed by me in its entirety. I confirm that the documentation accurately reflects all work, treatment, procedures, and medical decision making performed by me. Attending Attestation - Resident Resident Name: Adelia Dover - ED Attending Attestation I have performed the following: I have examined & evaluated the patient, The case was reviewed & discussed with the resident, I agree w/resident's findings & plan, Exceptions are as noted - HPI HPI: 04/29/19 17:11 The patient is a 48 year old male, with a significant past medical history of polysubstance abuse (opioids/alcohol), who presents to the emergency department with 1 day of nausea, vomiting, and diarrhea. As per patient, he was recently discharged from detox this morning and he felt the urge to use thus, he took Naltrexone. Patient notes he began to experience nausea, vomiting, and diarrhea thus, he used a bag of heroin and came to the ED. He denies any recent fevers, chills, headache or dizziness. He denies any recent chest pain or shortness of breath. He denies any recent dysuria, frequency, urgency or hematuria. Allergies: NKDA - Physicial Exam PE: agree with resident exam - Medical Decision Making 48yo M presents to the ED after using a bag of heroine to treat withdrawal sxs after taking naltrexone. Labs with mildly elevated creatinine, pt got liter of fluids in ED Also hypercalcemia, however, when corrected is upper limit of normal LFTs are mildly bumped which was communicated to pt who will f/u with PMD for rpt Pt feeling better, lives with mother and will go there upon discharge He was given narcan in the ED to take home - pt not interested in detox again but states he wants to get clean Will go to methadone clinic tomorrow He is clinically sober and stable for discharge after a period of observation in the ED I discussed the physical exam findings, ancillary test results and final diagnoses with the patient. I answered all of the patient's questions. The patient was satisfied with the care received and felt comfortable with the discharge plan and treatment plan. The patient will call their primary care physician within 24 hours to arrange follow-up and will return to the Emergency Department with any new, persistent or worsening symptoms.
== END 2019-04-29 17:44 | disposition home or self-care (01) ==
LOC: JER 14:57
PROC: 3E033GC Introduction of Other Therapeutic Substance into Peripheral Vein, Percutaneous Approach (ICD-10-PCS; principal; 2019-04-29)
DX: R11.2 Nausea with vomiting, unspecified (principal); T50.7X5A Adverse effect of analeptics and opioid receptor antagonists, initial encounter; F11.10 Opioid abuse, uncomplicated; Z87.891 Personal history of nicotine dependence
CPT/HCPCS: 36415; 80053; 80307; 85025; 93005; 93010; 99282-25; J7030

== ENCOUNTER 2021-11-09 18:22 | Emergency (ER) | payer OTHER ==
[2021-11-09 18:40] VITALS: BP 154/95; PULSE 57; TEMP 98.2; BMI 29.0
== END 2021-11-09 21:08 | disposition home or self-care (01) ==
LOC: JER 18:22
DX: R05.9 Cough, unspecified (principal); R50.9 Fever, unspecified; Z20.822 Contact with and (suspected) exposure to COVID-19
CPT/HCPCS: 0241U-QW; 71046-TC-FY; 99284-25